=== PATIENT | male | born 1975 | race Caucasian/White ===

== ENCOUNTER 2021-09-22 01:25 | Day surgery (SDC) | payer OTHER, SELFPAY ==
[2021-09-07 14:38] VITALS: BMI 25.9
[2021-09-22 07:24] VITALS: BP 149/98; PULSE 69; RESP 17; TEMP 36.2; O2SAT 100
[2021-09-22] MEDS: LACTATED RINGERS 1,000 ML 150 ML IV CONT (07:37)
--- NOTE | 2021-09-22 08:16 | P.PNAN_ITS ---
Anes - Initial Pre Proc Eval Procedure: Operation Date: 09/22/21 08:45 Proposed Procedures p Screening Colonoscopy - Juan Daniel Dior MD Date/Time: 09/22/21 08:16 Surgeon: Juan Daniel Dior MD Pre Op Diagnosis: neoplasm screening Patient Data Age: 45 Gender: M Height: 1.73 m Weight: 75.7 kg Last Vital Signs Temp 36.2 C L 09/22/21 07:24 Pulse 69 09/22/21 07:24 Resp 17 09/22/21 07:24 BP 149/98 H 09/22/21 07:24 Pulse Ox 100 09/22/21 07:24 O2 Del Method Room Air 09/22/21 07:24 Allergies Allergy/AdvReac Type Severity Reaction Status Date / Time morphine AdvReac Intermediate ITCHEY Verified 09/22/21 07:23 Home Medications Medication Instructions Recorded Confirmed Type atorvastatin 10 mg tablet 10 mg PO DAILY 09/07/21 09/07/21 History lisinopril 10 mg tablet 10 tablet PO DAILY 09/07/21 09/07/21 History Patient hx anesthesia problems: none Family hx anesthesia problems: none Results Review: All pre-operative results and documents have been reviewed as part of the pre- operative evaluation. PMFSH Past Medical History Medical History Hyperlipidemia Hypertension Family History Family History Other Family history of arthritis Family history of emphysema Hypertension Social History Social History Smoking status: Former smoker Tobacco type: cigarettes Alcohol intake: never Substance use: never Substance use type: does not use Living arrangements: with family Spiritual care concerns: No Anes - Eval Final PreProcedure Day of Procedure 09/22/21 08:16 Patient weight: normal Heart: regular rate and rhythm Lungs: clear to auscultation Airway: Mallampati scale class II Neurological: alert and oriented Last oral intake: >/= 8 hours ASA classification: II Emergent: no Anesthetic plan: proceed Anesthesia type and monitoring: general GIVS and standard monitoring Results Review: All pre-operative results and documents have been reviewed as part of the pre- operative evaluation. Informed Consent: The patient's anesthetic plan and its attendant risks and benefits were discussed with the patient/family/POA. Questions were solicited and answers provided to the satisfaction of the patient/family/POA.
--- NOTE | 2021-09-22 08:22 | PM.HPGS ---
History of Present Illness History of Present Illness Consent: Risks, benefits, and alternatives have been discussed and questions answered. Patient agrees to proceed with procedure. Chief complaint: neoplasm screening Narrative: Yuri Tovar is a 45 year old male here for first screening colonoscopy Review of Systems Constitutional: Constitutional: Denies headache(s) and Denies weakness Eyes: Eyes: Denies blurry vision ENT: Reports Normal hearing present, Denies headache(s) and Denies neck pain Cardiovascular: Cardiovascular: Denies chest pain and Denies dyspnea Respiratory: Respiratory: Denies dyspnea Gastrointestinal: Gastrointestinal: Reports no additional gastrointestinal complaints Genitourinary: Genitourinary: Denies dysuria Musculoskeletal: Musculoskeletal: Denies neck pain Integumentary/Breasts: Skin/Breast: Denies dry skin Neurologic: Reports Normal hearing present, Denies headache(s) and Denies weakness Psychiatric: Psychiatric: Denies anxiety Endocrine: Endocrine: Denies change in body appearance Hematologic/Lymphatic: Hematologic/Lymphatic: Denies easy bleeding Allergic/Immunologic: Allergic/Immunologic: Denies urticaria [facility] Past Medical History Medical History (Updated 09/22/21 @ 08:22 by Juan Daniel Dior MD) Colon cancer screening Hyperlipidemia Hypertension Family History Family History Other Family history of arthritis Family history of emphysema Hypertension Social History Social History Smoking status: Former smoker Tobacco type: cigarettes Alcohol intake: never Substance use: never Substance use type: does not use Living arrangements: with family Spiritual care concerns: No Meds Home Medications and Allergies Home Medications Medication Instructions Recorded Confirmed Type atorvastatin 10 mg tablet 10 mg PO DAILY 09/07/21 09/07/21 History lisinopril 10 mg tablet 10 tablet PO DAILY 09/07/21 09/07/21 History Allergies Allergy/AdvReac Type Severity Reaction Status Date / Time morphine AdvReac Intermediate ITCHEY Verified 09/22/21 07:23 Vital Signs Vital Signs - 24 hr 09/22/21 07:24 Temperature 97.1 F L Pulse Rate 69 Respiratory Rate 17 Blood Pressure 149/98 H Pulse Oximetry 100 Oxygen Delivery Room Air Exam Const: General: comfortable and no acute distress HENMT: General nose exam: Normal nares present Eyes: General: appearance normal, both eyes and all related structures Neck: Neck: no JVD Resp: Auscultation: clear to auscultation bilaterally Cardio: Rate: regular rate Rhythm: regular rhythm GI: Inspection: non-distended GI Palp: Yes Soft to palpation Skin: General skin exam: normal color Neuro: General: gait normal Speech: normal speech Extrem: General: normal to inspection Psych: Mental Status: mental status grossly normal Assessment and Plan Assessment and plan (1) Colon cancer screening: Code(s): Z12.11 - Encounter for screening for malignant neoplasm of colon Status: Acute Assessment and Plan: colonoscopy
[2021-09-22 08:46] VITALS: BP 156/100; PULSE 62; RESP 21; O2SAT 100
[2021-09-22 08:56] VITALS: BP 169/90; PULSE 53; RESP 18; O2SAT 100
[2021-09-22 09:06] VITALS: BP 152/87; PULSE 52; RESP 16; O2SAT 100
== END 2021-09-22 09:10 | disposition home or self-care (01) ==
PROVIDERS: PCP Nurse Practitioner Adult Health; Visit Provider Internal Medicine Gastroenterology
PROC: 0DJD8ZZ Inspection of Lower Intestinal Tract, Via Natural or Artificial Opening Endoscopic (ICD-10-PCS; CPT 45378; principal; 2021-09-22 08:45)
DX: Z12.11 Encounter for screening for malignant neoplasm of colon (principal); D12.3 Benign neoplasm of transverse colon; K63.5 Polyp of colon; K57.30 Diverticulosis of large intestine without perforation or abscess without bleeding; K64.8 Other hemorrhoids; I10 Essential (primary) hypertension; E78.5 Hyperlipidemia, unspecified; Z87.891 Personal history of nicotine dependence
CPT/HCPCS: 45380; 45385; 88305; J2001; J2704; J7120

== ENCOUNTER 2023-10-15 06:30 | Observation (INO) | payer OTHER, SELFPAY ==
[2023-10-15] VITALS (23 sets, daily range): BP systolic 102–128; BP diastolic 62–79; PULSE 52–88; RESP 14–16; TEMP 36.2–37; O2SAT 99–100; BMI 25.0
--- NOTE | ~2023-10-15 | CT_ITS ---
EXAMINATION: CT abdomen pelvis w con DATE: 10/15/2023 07:48 INDICATION: Right upper quadrant abdominal pain, diarrhea for 2 to 3 days. TECHNIQUE: Computed tomography (CT) of the abdomen and pelvis was performed with 100 CC Omnipaque 350 intravenous contrast. Automated exposure control and iterative reconstruction technique were employe d. Exam dose: 335.26 mGy-cm total exam DLP. COMPARISON: 12/13/2012 CT abdomen pelvis FINDINGS: Mild bilateral lower lobe dependent atelectasis, right greater than left. Normal heart size. No pericardial or pleural effusion. The liver, gallbladder, bile ducts, spleen, pancreas, pancreatic duct, adrenal glands and kidneys are unremarkable. Normal caliber of the abdominal aorta. No intraperitoneal or retroperitoneal or pelvic mass lesion or adenopathy or ascites. Small fat-containing umbilical hernia. The urinary bladder, prostate gland and seminal vesicles are unremarkable. No bowel obstruction, bowel wall thickening, pneumatosis or intraperitoneal free air is detected. The re are some fluid distended nondilated small bowel segments with air-fluid levels which may represent enteritis. Compared to 12/13/2012 the appendiceal margins appear somewhat ill-defined and the wall appears thicke lisa. There is periappendiceal fat stranding and mild thickening of the adjacent anterior pararenal an d lateral conal fascia. The findings suggest acute appendicitis despite the lack of significant appen diceal dilatation. No abscess is identified. Included skeletal structures are unremarkable. IMPRESSION: Acute appendicitis with associated mild adynamic ileus Reviewed, dictated and finalized at [facility]. Reviewed, dictated and finalized at [facility].
[2023-10-15 07:13] LABS: Alanine Aminotransferase 33 U/L (6-50); Albumin Level 4.5 g/dL (3.5-5.1); Alkaline Phosphatase 69 U/L (38-126); Anion Gap 10 mmol/L (4-12); Aspartate Amino Transferase 35 U/L (17-59); Bilirubin,Total 0.8 mg/dL (0.2-1.3); Blood Urea Nitrogen 12 mg/dL (9-20); Calcium 9.1 mg/dL (8.4-10.2); Carbon Dioxide 27 mmol/L (22-30); Chloride 101 mmol/L (98-107); Estimated CRCL calculation 86 ml/min; Estimated Glomerular Filt Rate > 60; Glucose 116 mg/dL (65-110); Lipase 65 U/L (23-300); Sodium 138 mmol/L (137-145)
[2023-10-15 07:17] LABS: Basophils Absolute Auto 0.1 K/mm3 (0.0-0.1); Basophils Percent Auto 0.6 % (0.2-1.2); Eosinophils Absolute Auto 0.3 K/mm3 (0-0.3); Eosinophils Percent Auto 3.3 % (0-4.4); Hematocrit 43.7 % (42.0-52.0); Immature Granulocyte Absolute 0.02 K/mm3 (0.00-0.031); Immature Granulocyte Percent A 0.3 % (0-0.5); Lymphocytes Absolute Auto 2.03 K/mm3 (0.9-3.2); Lymphocytes Percent Auto 25.5 % (18.3-44.2); Mean Corpuscular HGB Conc 34.3 g/dl (32-36); Mean Corpuscular Hemoglobin 31.4 pg (26-34); Mean Corpuscular Volume 91.6 fl (80-100); Mean Platelet Volume 8.4 fl (7.4-10.4); Monocytes Absolute Auto 0.5 K/mm3 (0.1-0.6); Monocytes Percent Auto 6.3 % (2.6-8.5); Neutrophils Absolute Auto 5.1 K/mm3 (1.3-6.7); Platelet Count Result 322 k/mm3 (150-375); Red Blood Count 4.77 M/mm3 (4.6-6.20); Red Cell Distribution Width 12.6 % (11.5-14.5)
--- NOTE | 2023-10-15 07:18 | ED.ABDPAIN ---
HPI - Abdominal Pain General Chief Complaint: Abdominal Pain Stated Complaint: abdomnal pain Time Seen by Provider: 10/15/23 06:51 History of Present Illness HPI narrative: 47-year-old male presents to the emergency department for evaluation for right-sided pain that has been ongoing for the last 2 days. Patient denies any associated nausea vomiting. Patient states pain is not worsened with eating or drinking but reports pain is worsened with movement. Patient reports he does have a prior history of a polyp in his gallbladder, he states he was on vacation last year with similar symptoms and presented to emergency department, and CT scan and that was at diagnosis. Patient has not had follow-up with a physician regarding this. Patient reports that the current pain started off in the right upper quadrant now appears more tender in the right lower quadrant. Related Data Home Medications Medication Instructions Recorded Confirmed atorvastatin 10 mg tablet 10 mg PO DAILY 09/07/21 07/12/23 cholecalciferol (vitamin D3) 25 25 mcg PO DAILY 07/12/23 07/12/23 mcg (1,000 unit) capsule magnesium 250 mg tablet 250 mg PO DAILY 07/12/23 07/12/23 multivitamin 1 tablet PO DAILY 07/12/23 07/12/23 omega 6-zma-oof-fish oil 1,200 mg cap PO BID 07/12/23 07/12/23 (144 mg-216 mg) capsule (Fish Oil) psyllium husk 0.52 gram capsule 0.52 g PO DAILY 07/12/23 07/12/23 (Daily Fiber) Allergies Allergy/AdvReac Type Severity Reaction Status Date / Time morphine AdvReac Intermediate ITCHEY Verified 07/12/23 10:06 Review of Systems Review of Systems: All systems reviewed & are unremarkable except as noted in HPI and below PMFSH Past Medical History Medical History BMI 25.0-25.9,adult Colon cancer screening Elevated fasting glucose Hyperlipidemia Hypertension Vitamin D deficiency Nvfsl-Sozqavply-Oxave (WPW) syndrome Surgical History Surgical History H/O umbilical hernia repair History of placement of ear tubes 1980 History of tonsillectomy 2000 Hx of cardiac catheterization 1996 Family History Family History Father Hypertension Mother Hypertension Sibling Hypertension Other Family history of arthritis Family history of emphysema Social History Social History Smoking status: Former smoker Tobacco type: cigarettes Smoking end date: 03/20/11 Alcohol intake: current Alcohol use details: Beer- 1-2 times a year Substance use: never Substance use type: does not use Living arrangements: with family Spiritual care concerns: No Exam Narrative: APPEARANCE: Uncomfortable appearing HEAD: normocephalic, atraumatic. EYES: PERRLA/EOMI, conjunctivae clear. NOSE: Normal no drainage EARS:TMS clear with good light reflex. THROAT: Pharynx clear, no exudate. NECK: Supple. No adenopathy, no masses. RESPIRATORY: Airway patent, respirations nonlabored. Clear to auscultation bilaterally, no rales, rhonchi, wheezing. CARDIOVASCULAR: Regular rate and rhythm without murmurs rubs or gallops. ABDOMINAL: Right lower quadrant tenderness to palpation with guarding MUSCULOSKELETAL: Moves all extremities. Strength/ROM intact, No edema, No calf tenderness. NEURO: Alert. Cranial nerves II through XII intact. Grossly intact SKIN: Warm, dry. Normal Color Course Course Emergency Course: Surgery was consulted for acute appendicitis. Patient was started on Zosyn and admitted. Vital Signs Vital signs: Vital Signs Temperature 97.9 F 10/15/23 06:38 Pulse Rate 88 10/15/23 06:38 Respiratory Rate 15 10/15/23 06:38 Blood Pressure 128/79 10/15/23 06:38 Pulse Oximetry 100 10/15/23 06:38 Oxygen Delivery Room Air 10/15/23 06:38 Temperature 97.9 F 10/15/23 06:38 Pulse Rate 82 10/15/23 10:01
[2023-10-15] MEDS: SODIUM CHLORIDE 0.9% IV 1,000 ML 999 ML IV CONT (07:32)
[2023-10-15] MEDS: HYDROmorphone HCL INJ (*CRX) 1 MG/ML SYR 0.5 MG IV PUSH ×3 (07:32→18:42)
[2023-10-15 08:28] LABS: Appearance Urine Clear (Clear); Bacteria Urine None Seen /hpf; Bilirubin Urine Negative (Negative); Blood Urine Trace (Negative); Color Urine Yellow (Yellow); Glucose Urine UA Negative (Negative); Ketones Urine Negative (Negative); Leukocyte Esterase Ur Negative LEU/UL (Negative); Nitrate Urine Negative (Negative); Non Pathogenic Casts 0-2; Protein Urine Negative (Negative); RBC Urine 0-2 /hpf (0-2); Specific Grav Ur 1.018 (1.001-1.035); Squamous Epithelial Cell Urine None Seen /hpf (Few); Urobilinogen Urine 0.2 mg/dL (<2.0); WBC Urine 0-5 /hpf (0-3)
[2023-10-15 08:32] LABS: Add Urine Microscopic? YES
[2023-10-15] MEDS: PIPERACILLN/TAZ 3.375GM/NS50ML 3.375 GM/50 ML BAG IVPB ×3 (09:25→20:58)
[2023-10-15 09:33] LABS: Prothrombin Time 13.7 Seconds (11.1-14.7)
[2023-10-15 09:34] LABS: Partial Thromboplastin Time 31.6 Seconds (22.3-36.8)
--- NOTE | 2023-10-15 10:27 | PM.IMHP ---
H&P: HPI History of Present Illness Date/Time: 10/15/23 10:27 Chief Complaint: Right-sided abdominal pain Narrative: patient is a 37-year-old gentleman presented to the emergency room today with a 2 day history of right side abdominal pain which got worse this morning to the point that he had to have some help getting up out of bed. No nausea or vomiting. He has been having some loose stools last couple of days. He does not have a history of constipation. He states he has had pain in the similar area with a similar pattern over the last couple years. Usually goes away. He still has his appendix. He has only had a prior open umbilical hernia repair without mesh. White blood cell count is normal. Afebrile. CT scan abdomen pelvis shows some subtle stranding in the right lower quadrant the abdomen around the area the cecum and the appendix. The appendix is not dilated a normal-sized and does have a small amount of air within the lumen of the appendix. Review of Systems Review of Systems: The remainder of the review of systems to include constitutional, HEENT, cardiovascular, respiratory, GI, , integumentary, musculoskeletal, endocrine, immunologic, hematologic, psychiatric, and neurologic are all negative except for which is mentioned above in the HPI. COUNTS INCLUDE 234 BEDS AT THE [facility] Past Medical History Medical History BMI 25.0-25.9,adult Colon cancer screening Elevated fasting glucose Hyperlipidemia Hypertension Vitamin D deficiency Sxsvf-Nyztjcrjc-Wvshu (WPW) syndrome Surgical History Surgical History H/O umbilical hernia repair History of placement of ear tubes 1980 History of tonsillectomy 2000 Hx of cardiac catheterization 1996 Family History Family History Father Hypertension Mother Hypertension Sibling Hypertension Other Family history of arthritis Family history of emphysema Social History Social History Smoking status: Former smoker Tobacco type: cigarettes Smoking end date: 03/20/11 Alcohol intake: current Alcohol use details: Beer- 1-2 times a year Substance use: never Substance use type: does not use Living arrangements: with family Spiritual care concerns: No Meds Home Medications and Allergies Home Medications Medication Instructions Recorded Confirmed Type atorvastatin 10 mg tablet 10 mg PO DAILY 09/07/21 07/12/23 History cholecalciferol (vitamin D3) 25 25 mcg PO DAILY 07/12/23 07/12/23 History mcg (1,000 unit) capsule magnesium 250 mg tablet 250 mg PO DAILY 07/12/23 07/12/23 History multivitamin 1 tablet PO DAILY 07/12/23 07/12/23 History omega 4-ape-gmr-fish oil 1,200 mg cap PO BID 07/12/23 07/12/23 History (144 mg-216 mg) capsule (Fish Oil) psyllium husk 0.52 gram capsule 0.52 g PO DAILY 07/12/23 07/12/23 History (Daily Fiber) lisinopril 40 mg tablet 40 mg PO DAILY #90 tabs 10/09/23 Rx Allergies Allergy/AdvReac Type Severity Reaction Status Date / Time morphine AdvReac Intermediate ITCHEY Verified 07/12/23 10:06 Vital Signs Vital Signs - 24 hr 10/15/23 06:38 10/15/23 07:01 10/15/23 08:00 Temperature 36.6 C Pulse Rate 88 64 55 L Respiratory Rate 15 16 14 Blood Pressure 128/79 111/73 117/78 Pulse Oximetry 100 100 100 Oxygen Delivery Room Air 10/15/23 09:00 10/15/23 06:53 10/15/23 07:00 Temperature Pulse Rate 52 L Respiratory Rate 14 Blood Pressure 111/77 111/73 Pulse Oximetry 99 100 100 Oxygen Delivery 10/15/23 07:01 10/15/23 07:21 10/15/23 07:30 Temperature Pulse Rate Respiratory Rate Blood Pressure 102/76 Pulse Oximetry 100 100 100 Oxygen Delivery 10/15/23 07:31 10/15/23 08:03 10/15/23 08:16 Temperature Pulse Rate Respiratory Rate Blood Pressure Pulse Oximetry 100
[2023-10-15] MEDS: SODIUM CHLORIDE 0.9% IV 1,000 ML 125 ML IV CONT ×2 (10:50→20:57)
--- NOTE | 2023-10-15 11:26 | ADMGEN ---
This patient, Yuri Tovar, was admitted to [facility] Surg Room 302-01. Patient/family oriented to hospital policies and general routines including ID bracelet, bed and alarms, visiting hours, pain management, procedures, bathroom and other care routines, personal items, smoking policy, room service/diet, and visiting hours. Information on how to activate the Rapid Response Team has been discussed. Patient/Family are encouraged to report perceived risks to care and to ask questions if they do not understand what they are told or what they should do. Report from Yuri in ER.
[2023-10-15] MEDS: MAGNESIUM HYDROXIDE SUSP 30 ML UDC 60 ML PO (13:40)
[2023-10-15] MEDS: ACETAMINOPHEN 500 MG TABLET 1000 MG PO (17:19)
[2023-10-15] MEDS: ONDANSETRON INJ 4 MG/2 ML VIAL IV PUSH (21:30)
[2023-10-16] MEDS: PIPERACILLN/TAZ 3.375GM/NS50ML 3.375 GM/50 ML BAG IVPB ×2 (03:13→08:26)
[2023-10-16] MEDS: SODIUM CHLORIDE 0.9% IV 1,000 ML 125 ML IV CONT (05:27)
[2023-10-16 05:51] LABS: Basophils Absolute Auto 0.1 K/mm3 (0.0-0.1); Basophils Percent Auto 0.8 % (0.2-1.2); Eosinophils Absolute Auto 0.2 K/mm3 (0-0.3); Eosinophils Percent Auto 2.6 % (0-4.4); Hematocrit 43.2 % (42.0-52.0); Hemoglobin 14.6 g/dL (14.0-18.0); Immature Granulocyte Absolute 0.02 K/mm3 (0.00-0.031); Immature Granulocyte Percent A 0.3 % (0-0.5); Lymphocytes Absolute Auto 2.26 K/mm3 (0.9-3.2); Lymphocytes Percent Auto 34.2 % (18.3-44.2); Mean Corpuscular HGB Conc 33.8 g/dl (32-36); Mean Corpuscular Hemoglobin 30.8 pg (26-34); Mean Corpuscular Volume 91.1 fl (80-100); Mean Platelet Volume 8.4 fl (7.4-10.4); Monocytes Absolute Auto 0.4 K/mm3 (0.1-0.6); Monocytes Percent Auto 5.9 % (2.6-8.5); Neutrophils Absolute Auto 3.7 K/mm3 (1.3-6.7); Neutrophils Percent Auto 56.2 % (45.5-73.1); Platelet Count Result 335 k/mm3 (150-375); Red Blood Count 4.74 M/mm3 (4.6-6.20); Red Cell Distribution Width 12.4 % (11.5-14.5); White Blood Count 6.6 K/mm3 (4.5-10.0)
[2023-10-16 06:00] VITALS: BP 112/59; PULSE 62; RESP 16; TEMP 36.4; O2SAT 100
[2023-10-16 06:01] LABS: Anion Gap 11 mmol/L (4-12); Blood Urea Nitrogen 8 mg/dL (9-20); Calcium 8.5 mg/dL (8.4-10.2); Carbon Dioxide 23 mmol/L (22-30); Chloride 104 mmol/L (98-107); Estimated CRCL calculation 96 ml/min; Estimated Glomerular Filt Rate > 60; Glucose 87 mg/dL (65-110); Potassium 3.7 mmol/L (3.4-5.0); Sodium 138 mmol/L (137-145)
[2023-10-16] MEDS: lisinopriL 20 MG TABLET 40 MG PO (12:10)
--- NOTE | 2023-10-16 13:49 | PM.DS ---
DS: Admitting Diagnosis Discharge Date 10/16/23 Admitting Diagnosis Abdominal pain DS: Discharge Diagnosis Discharge Diagnosis (1) Abdominal pain: Code(s): R10.9 - Unspecified abdominal pain Status: Acute DS: Summary Hospital Course Reason for hospitalization: This is a 47-year-old man who presented to the ED with complaints of right-sided abdominal pain for 2 days. He had been having loose stools for a few days leading up to his hospitalization. He has had similar pain in this area intermittently over the last couple years that would typically go away. Workup in the ED showed a normal white blood cell count and CT evidence of some subtle fat stranding in the right lower quadrant of the abdomen around the area of the cecum and the appendix. The appendix was not dilated. He was admitted for surgical evaluation and treatment of his abdominal pain, possible appendicitis. Hospital Course: He was initially treated with broad-spectrum IV antibiotics. His presentation of abdominal pain was atypical for acute appendicitis. Options were discussed and patient decided to proceed with conservative treatment and monitoring. He also appeared constipated and was given a laxative for bowel stimulation. His abdominal pain significantly improved after moving his bowels. He was monitored and labs were followed with a normal white blood cell count the following day. He remained afebrile. His abdominal exam was fairly benign with only very mild tenderness in the right lower quadrant with deep palpation. His diet was advanced and he was tolerating this well. He was stable for discharge this afternoon with a course of oral antibiotics to cover for possible appendicitis. Status at Discharge Functional status at discharge: independent ambulation Overall status at discharge: patient is back to baseline Time Spent with Patient Time attestation: Total time spent providing and/or coordinating discharge services: Time spent: Greater than 30 minutes Exam Const: General: comfortable and no acute distress Orientation/consciousness: patient oriented x3 GI: Inspection: non-distended and no visible herniation GI Palp: Yes Soft to palpation, Yes Tenderness to palpation present (GI) (very mild RLQ tenderness), No Guarding due to palpation present (GI) and No Rebound tenderness present Percussion: Yes normal to percussion Auscultation: normal bowel sounds DS: Data Data Completed and Pending Labs on day of discharge: Labs from last 24 hours 10/16/23 05:22 WBC 6.6 RBC 4.74 Hgb 14.6 Hct 43.2 MCV 91.1 MCH 30.8 MCHC 33.8 RDW 12.4 Plt Count 335 MPV 8.4 Immature Gran % (Auto) 0.3 Neut % (Auto) 56.2 Lymph % (Auto) 34.2 Marshall % (Auto) 5.9 Eos % (Auto) 2.6 Baso % (Auto) 0.8 Lymph # (Auto) 2.26 Marshall # (Auto) 0.4 Eos # (Auto) 0.2 Baso # (Auto) 0.1 Abs Immat Gran (auto) 0.02 Absolute Neuts (auto) 3.7 Absolute Nucleated RBC 0.000 Nucleated RBC % 0.0 Sodium 138 Potassium 3.7 Chloride 104 Carbon Dioxide 23 Anion Gap 11 BUN 8 L Creatinine 0.80 Estim Creat Clear Calc 96 Estimated GFR > 60 Glucose 87 Calcium 8.5 Preliminary micro results at discharge 10/15/23 09:12 Blood Culture - Preliminary Blood 10/15/23 09:12 Blood Culture - Preliminary Blood Imaging Radiologist's impression: ITS Impressions Abdomen/Pelvis CT 10/15/23 07:58 IMPRESSION: Acute appendicitis with associated mild adynamic ileus Discharge Plan Discharge Attending physician on discharge: Bebeto Mares Consulting providers: Raeann Elizabeth; Brent Mccurdy Discharging Clinician: Raeann Elizabeth Anticipated Discharge Date/Time: 10/16/23 13:50 Patient Disposition: Home, Self-Care Activity: as tolerated Diet: as tolerated and regular Discharge Instructions: You were prescribed antibiotics, which were sent to the pharmacy electronically. supervisor housecleaner this medication and finish all of the
== END 2023-10-16 14:40 | disposition home or self-care (01) ==
LOC: ANHED 08:37 → ANH3MEDSUR 10:40
PROVIDERS: Student in an Organized Health Care Education/Training Program; Admitting Provider Surgery; Emergency Provider Emergency Medicine; PCP Nurse Practitioner Family; Visit Provider Surgery
DX: R10.9 Unspecified abdominal pain (principal); I10 Essential (primary) hypertension; E78.5 Hyperlipidemia, unspecified; I45.6 Pre-excitation syndrome; E55.9 Vitamin D deficiency, unspecified; Z87.891 Personal history of nicotine dependence
CPT/HCPCS: 36415; 74177; 80048; 80053; 81001; 83690; 85025; 85610; 85730; 87040; 96361; 96374; 96375; 96376; 99285; A9270; G0378; J1170; J2405; J2543; J7030; Q9967